=== PATIENT | female | born 1965 ===

== ENCOUNTER 2020-08-18 22:38 | Emergency (ER) | payer MEDICARE, OTHER ==
[~2020-08-18] VITALS: Ht 162.6 cm; Wt 83.5 kg
[2020-08-18] MEDS ORDERED: losartan PO (22:49)
--- NOTE | 2020-08-18 22:55 | NUR ---
at bedside for MSE.
[2020-08-18] MEDS ORDERED: MAG HYDROX/AL HYDROX/SIMETH 30 ML LIQUID UDC PO ONE (23:00)
[2020-08-18] MEDS ORDERED: PANTOPRAZOLE SODIUM 40 MG TABLET.DR PO ONE ×2 (23:00→23:16)
[2020-08-18] MEDS ORDERED: DICYCLOMINE HCL LIQ 10 MG/5 ML UDC PO ONE (23:00)
[2020-08-18] MEDS ORDERED: ACETAMINOPHEN 325 MG TABLET PO ONE (23:00)
[2020-08-18] MEDS ORDERED: ACETAMINOPHEN ES 500 MG TABLET ONE (23:15)
[2020-08-18] MEDS ORDERED: MAG HYDROX/AL HYDROX/SIMETH 30 ML LIQUID UDC ONE (23:15)
[2020-08-18] MEDS ORDERED: DICYCLOMINE HCL LIQ 10 MG/5 ML UDC ONE (23:16)
[2020-08-18] MEDS ORDERED: PANT40TA2 PO (23:53)
--- NOTE | 2020-08-19 00:41 | NUR ---
[facility] called for pt transportation. ETA: 45 - 60 min.
--- NOTE | 2020-08-19 00:44 | NUR ---
Pt resting comfortably in bed. Arousable to voice, no acute distress noted. VSS. Continue plan of care.
[2020-08-19 01:49] VITALS: BP 130/70
== END 2020-08-19 01:50 | disposition home or self-care (01) ==
LOC: ER 22:41
DX: K21.00 Gastro-esophageal reflux disease with esophagitis, without bleeding (principal); R51.9 Headache, unspecified; F17.200 Nicotine dependence, unspecified, uncomplicated; Z88.0 Allergy status to penicillin
CPT/HCPCS: A9150